=== PATIENT | female | born 1995 | race Caucasian/White ===

== ENCOUNTER 2016-10-10 19:34 | Emergency (ER) | payer MEDICAID ==
[~2016-10-10] VITALS: Ht 165.1 cm; Wt 91.2 kg
[~2016-10-10 19:34] MED LIST: IRONTAB35 PO; NIF10C PO; PREN-96 PO
[2016-10-10 20:49] VITALS: BP 111/68
[2016-10-10 21:31] LABS: Urine Bilirubin Negative (Negative); Urine Color Yellow (Yellow); Urine Glucose Normal (Normal); Urine Ketone TRACE (Negative); Urine Mucus FEW (None Seen); Urine Nitrite Negative (Negative); Urine RBC 622 /hpf (0 - 4); Urine Squamous Epithelial Cell FEW /hpf (<5); Urine Urobilinogen Normal (Negative)
[2016-10-10 21:39] LABS: Urine Blood 3+ /uL (Negative)
== END 2016-10-11 00:22 | disposition home or self-care (01) ==
LOC: ER 19:34
DX: N39.0 Urinary tract infection, site not specified (principal); J45.909 Unspecified asthma, uncomplicated; Z88.6 Allergy status to analgesic agent
CPT/HCPCS: 81001; 81025

== ENCOUNTER 2016-11-28 18:32 | Emergency (ER) | payer MEDICAID ==
[~2016-11-28] VITALS: Ht 165.1 cm; Wt 87.8 kg
[2016-11-28 19:48] LABS: Basophils # (auto) 0.1 uL; Basophils % (auto) 1.3 % (0.0-2.0); DEFINITIVE VIEW TRANSMISSION; Eosinophils # (auto) 0 uL; Eosinophils % (auto) 0.5 % (0.0-7.0); Hemoglobin 13.1 g/dL (12.2-16.2); Lymphocytes # (auto) 2.7 uL; Lymphocytes % (auto) 26.8 % (10.0-50.0); Mean Corpuscular Hgb Conc. 33.4 g/dL (32.0-36.0); Mean Corpuscular Volume 77.8 fL (80.0-100.0); Mean Platelet Volume 10.7 fL (7.4-10.4); Monocytes # (auto) 0.6 uL; Monocytes % (auto) 6.4 % (0.0-12.0); Neutrophils # (auto) 6.5 uL; Platelet Count (auto) 271 10^3/uL (140-450); Red Cell Distribution Width 16.5 % (11.6-16.0)
[2016-11-28 19:57] LABS: BUN/Creatinine Ratio 8.5; Calcium 8.9 mg/dL (8.5-10.1)
[2016-11-28 19:59] LABS: Bilirubin, Total 0.3 mg/dL (0.2-1.0); Total Protein 7.9 g/dL (6.4-8.2)
[2016-11-28 20:08] LABS: Urine Bilirubin Negative (Negative); Urine Blood Negative /uL (Negative); Urine Color Yellow (Yellow); Urine Glucose Normal (Normal); Urine Ketone Negative (Negative); Urine Mucus FEW (None Seen); Urine Nitrite Negative (Negative); Urine RBC 1 /hpf (0 - 4); Urine Squamous Epithelial Cell FEW /hpf (<5); Urine Urobilinogen Normal (Negative); Urine pH 6.5 (5.0-8.0)
[2016-11-29] MEDS ORDERED: ONDANSETRON HCL 4 MG/2 ML VIAL IV ONE (04:15)
[2016-11-29] MEDS ORDERED: SODIUM CHLORIDE 0.9% 1,000 ML IV ONE (04:15)
[2016-11-29] MEDS ORDERED: NALBUPHINE HCL 10 MG/1ml INJECTION IV ONE (04:15)
[2016-11-29] MEDS ORDERED: ACETAMINOPHEN 325 MG TAB PO ONE (04:30)
[2016-11-29 05:33] VITALS: BP 110/57
== END 2016-11-29 05:35 | disposition home or self-care (01) ==
LOC: ER 18:39
DX: O23.41 Unspecified infection of urinary tract in pregnancy, first trimester (principal); O21.0 Mild hyperemesis gravidarum; O02.81 Inappropriate change in quantitative human chorionic gonadotropin (hCG) in early pregnancy; O26.892 Other specified pregnancy related conditions, second trimester; R51 Headache; Z88.6 Allergy status to analgesic agent; Z3A.09 9 weeks gestation of pregnancy
CPT/HCPCS: 36415; 80053; 81001; 83735; 84702; 85025; 96361; 96374; 99284; J2405; J7030